=== PATIENT | male | born 1975 | race American Indian/Alaskan Native ===

== ENCOUNTER 2018-03-31 16:09 | Emergency (ER) | payer OTHER ==
[2018-03-31 16:19] VITALS: BP 159/105
[2018-03-31] MEDS ORDERED: DILAUDID IM ONE (16:29)
[2018-03-31] MEDS ORDERED: DILAUDID ONE (16:33)
[2018-03-31] MEDS ORDERED: TRIPLE ANTIBIOTIC TP ONE (16:33)
[2018-03-31] MEDS ORDERED: XYLOCAINE 1% 20 mL INFILTRATI ONE (16:33)
[2018-03-31] MEDS ORDERED: NACL 0.9% IR ONE (16:33)
[2018-03-31] MEDS ORDERED: BOOSTRIX IM ONE (16:33)
[2018-03-31] MEDS ORDERED: ANCEF IM ONE (16:34)
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
--- NOTE | 2018-03-31 16:56 | XRay Report ---
FINAL REPORT EXAM: XR HAND 3+V LT HISTORY: nail through left ring finger TECHNIQUE: AP, lateral, and oblique views of the left hand PRIORS: None. FINDINGS: There is a metallic nail traversing the 4th proximal phalanx in its distal shaft. This also traverses the soft tissues of the 4th finger. There is no evidence for acute fracture or dislocation. Bony mineralization is normal and joint space s are maintained. IMPRESSION: Metallic nail is present traversing through the 4th proximal phalanx and the surrounding soft tissues .
[2018-03-31] MEDS ORDERED: WATER FOR INJ (PF) ONE (17:04)
[2018-03-31] MEDS ORDERED: PERCOCET 5/325 PO ONE (17:56)
== END 2018-03-31 18:37 | disposition home or self-care (01) ==
LOC: ED 16:09
DX: S60.032A Contusion of left middle finger without damage to nail, initial encounter (principal); F17.200 Nicotine dependence, unspecified, uncomplicated; W45.0XXA Nail entering through skin, initial encounter; W29.4XXA Contact with nail gun, initial encounter; Y93.89 Activity, other specified; Y99.8 Other external cause status; Y92.69 Other specified industrial and construction area as the place of occurrence of the external cause
CPT/HCPCS: 64450; 73130; 90471; 90715; 96372; 99283; J0690; J1170; A6250

== ENCOUNTER 2018-04-02 15:06 | Emergency (ER) | payer OTHER ==
--- NOTE | 2018-04-02 16:04 | Emergency Department Report ---
ED Recheck HPI - General Chief Complaint: Extremity Injury, Upper Stated Complaint: LFT HAND PAIN/INJURY Time Seen by Provider: 04/02/18 16:03 Source: patient Mode of arrival: Ambulatory Limitations: No Limitations - History of Present Illness Initial Comments: Patient is a pleasant 42-year-old male who was seen yesterday. He had a nail approximately 1-1/2 inches long and embedded in the soft tissue of his finger. The foreign body was removed without difficulty. Patient was given Ancef in the emergency room and discharged home with his family. He was unable to afford antibiotics so he was sent home on amoxicillin with instructions to follow up in the ER for recheck. Patient had also been given a tetanus and wound care. Patient went to work today and they looked at his wound and noticed it was red. They sent him to [facility] who sent him here. However, this is after they medicated him with an unknown medication. They were able to get him Bactrim he has the actual bottle in hand at this point. Patient is moving all extremities, has normal sensation, distal medial radial nerves intact on admission MD Complaint: wound re-check Initial Visit For: other Returns Today for: wound recheck - Related Data Previous Rx's Medication Instructions Recorded Last Taken Type traMADol [Ultram] 50 mg PO Q6HR PRN #12 tablet 03/31/18 Unknown Rx Allergies Allergy/AdvReac Type Severity Reaction Status Date / Time No Known Allergies Allergy Unverified 03/31/18 16:19 ED Review of Systems ROS: Stated complaint: LFT HAND PAIN/INJURY Other details as noted in HPI Comment: All other systems reviewed and negative Constitutional: denies: chills Eyes: denies: eye pain Respiratory: denies: cough Cardiovascular: denies: dyspnea on exertion Gastrointestinal: denies: nausea Genitourinary: denies: urgency Musculoskeletal: as per HPI Skin: other (finger and proximal hand is noted to be swollen today. It is mildly erythematous. Not warm to touch. No drainage or abscess.). denies: rash Neurological: denies: headache Psychiatric: denies: anxiety Hematological/Lymphatic: denies: easy bleeding ED Past Medical Hx - Past Medical History Previous Medical History?: No - Surgical History Past Surgical History?: Yes Additional Surgical History: back surgery - Family History Family history: no significant - Social History Smoking Status: Current Every Day Smoker Substance Use Type: None - Medications Home Medications: Home Medications Medication Instructions Recorded Confirmed Last Taken Type traMADol [Ultram] 50 mg PO Q6HR PRN #12 tablet 03/31/18 Unknown Rx ED Physical Exam - General Limitations: No Limitations General appearance: alert - Head Head exam: Present: atraumatic - Eye Eye exam: Present: normal appearance, PERRL - ENT ENT exam: Present: normal exam - Neck Neck exam: Present: normal inspection - Respiratory Respiratory exam: Present: normal lung sounds bilaterally - Cardiovascular Cardiovascular Exam: Present: regular rate - GI/Abdominal GI/Abdominal exam: Present: soft - Rectal Rectal exam: Present: deferred - Extremities Exam Extremities exam: Present: normal inspection - Expanded Upper Extremity Exam Left Elbow exam: Present: normal inspection Forearm Wrist exam: Present: normal inspection Hand Wrist exam: Present: full ROM, swelling, erythema, other (puncture wound status post foreign body removal). Absent: tenderness, abrasion, laceration, ecchymosis, deformity, crepidus, dislocation, amputation, nail avulsion, subungual hematoma Hand L/R Back: 1 - Area of redness. Radial medial and ulnar nerves intact. Rapid capillary refill. +2 radial and ulnar pulses. Sensation intact ED Course Vital Signs 04/02/18 04/02/18 04/02/18 15:40 17:52 18:22 Temperature 98.0 F Pulse Rate 82 80 Respiratory 18 16 18 Rate Blood Pressure 144/97 Blood Pressure 136/80 [Right] O2 Sat by Pulse 98 99 Oximetry ED Recheck MDM - Core Measures Measure Exclusions: not indicated - Differential Diagnosis Wound Recheck - Medical Decision Making Survey was repeated and there is a small avulsion fracture that was not obvious on the x-ray yesterday. Patient's hand was splinted. Patient is coming back tomorrow for a recheck. He is to continue taking his Bactrim. Critical care attestation.: If time is entered above; I have spent that time in minutes in the direct care of this critically ill patient, excluding procedure time. ED Disposition Clinical Impression: Finger fracture, left, Foreign body (FB) in soft tissue, Contusion Disposition: DC- TO HOME OR SELFCARE Is pt being admited?: No Does the pt Need Aspirin: No Condition: Stable Additional Instructions: RETURN TO ER TOMORROW BETWEEN 8AM AND 11AM TO SEE [facility] FOR RE-EXAMINATION CONTINUE TO TAKE YOUR BACTRIM MEDICATION STOP YOUR AMOXICILLIN Referrals: DUKE NUR MD [Primary Care Provider] - 3-5 Days Time of Disposition: 16:53
--- NOTE | 2018-04-02 17:22 | XRay Report ---
FINAL REPORT EXAM: XR FINGER(S) 1V LT HISTORY: SP FOREIGN BODY REMOVAL TECHNIQUE: AP, lateral, and oblique views of the left hand and 4th finger PRIORS: X-rays left hand 03/31/2018 FINDINGS: The metallic foreign body representing a nail has been removed in the interim. There are small fractu re fragments involving the distal end of the 4th proximal phalanx remaining. The largest of these fra gments is located along the ulnar margin of this bone. Overlying swelling is seen in this region. IMPRESSION: Fracture of the distal 4th proximal phalanx following removal of the radiopaque foreign body from the same region.
[2018-04-02] MEDS ORDERED: PERCOCET 5/325 PO ONE (17:33)
[2018-04-02 17:51] LABS: Basophils % (Auto) 0.3 % (0.0-1.8); Eosinophils % (Auto) 0.4 % (0.0-4.3); Hematocrit 42.8 % (35.5-45.6); Hemoglobin 14.8 gm/dl (11.8-15.2); Lymphocytes % (Auto) 25.8 % (13.4-35.0); Mean Corpuscular HGB Conc 35 % (32-34); Mean Corpuscular Volume 90 fl (84-94); Monocytes # (Auto) 0.7 K/mm3 (0.0-0.8); Monocytes % (Auto) 5.8 % (0.0-7.3); Platelet Count 262 K/mm3 (140-440); Red Blood Count 4.74 M/mm3 (3.65-5.03); Red Cell Distribution Width 13.4 % (13.2-15.2)
[2018-04-02 18:09] LABS: Alanine Aminotransferase 21 units/L (7-56); Albumin 4.2 g/dL (3.9-5); BUN/Creatinine Ratio 15; Blood Urea Nitrogen 9 mg/dL (9-20); Calcium 9.2 mg/dL (8.4-10.2); Hemolysis Index 8
[2018-04-02 18:25] VITALS: BP 136/80
== END 2018-04-02 18:22 | disposition home or self-care (01) ==
LOC: ED 15:06
DX: S62.603D Fracture of unspecified phalanx of left middle finger, subsequent encounter for fracture with routine healing (principal); F17.200 Nicotine dependence, unspecified, uncomplicated; X58.XXXD Exposure to other specified factors, subsequent encounter
CPT/HCPCS: 36415; 80053; 85025

== ENCOUNTER 2018-04-03 10:27 | Emergency (ER) | payer OTHER ==
[2018-04-03 10:42] VITALS: BP 130/80
[2018-04-03] MEDS ORDERED: NORCO 5/325 PO ONE (10:48)
--- NOTE | 2018-04-03 10:49 | Emergency Department Report ---
ED Recheck HPI - General Chief Complaint: Extremity Injury, Upper Stated Complaint: LFT HAND PAIN Time Seen by Provider: 04/03/18 10:47 Source: patient Mode of arrival: Ambulatory Limitations: No Limitations - History of Present Illness Initial Comments: She was asked to return to the ER today for recheck of his hand. He had a foreign body removed 2 days ago. He was here yesterday with some redness and swelling of the hand. He returns today for further evaluation MD Complaint: wound re-check Symptoms Since Prior Visit: no new symptoms Context: planned re-check Associated Symptoms: none Treatments Prior to Arrival: other (Bactrim) - Related Data Previous Rx's Medication Instructions Recorded Last Taken Type traMADol [Ultram] 50 mg PO Q6HR PRN #12 tablet 03/31/18 Unknown Rx Allergies Allergy/AdvReac Type Severity Reaction Status Date / Time No Known Allergies Allergy Verified 04/03/18 10:41 ED Review of Systems ROS: Stated complaint: LFT HAND PAIN Other details as noted in HPI Comment: All other systems reviewed and negative Constitutional: denies: chills ENT: denies: ear pain Respiratory: denies: orthopnea Cardiovascular: denies: palpitations Endocrine: denies: intolerance to cold Gastrointestinal: denies: abdominal pain Genitourinary: denies: dysuria Musculoskeletal: as per HPI (mild hand pain patient states overall is feeling much better), other Skin: denies: lesions Psychiatric: denies: anxiety ED Past Medical Hx - Past Medical History Previous Medical History?: No - Surgical History Past Surgical History?: Yes Additional Surgical History: back surgery - Social History Smoking Status: Current Every Day Smoker Substance Use Type: Alcohol - Medications Home Medications: Home Medications Medication Instructions Recorded Confirmed Last Taken Type traMADol [Ultram] 50 mg PO Q6HR PRN #12 tablet 03/31/18 Unknown Rx ED Physical Exam - General Limitations: No Limitations General appearance: alert - Head Head exam: Present: normocephalic - Eye Eye exam: Present: normal appearance, PERRL, EOMI - ENT ENT exam: Present: normal exam - Neck Neck exam: Present: normal inspection - Respiratory Respiratory exam: Present: normal lung sounds bilaterally - Cardiovascular Cardiovascular Exam: Present: regular rate - GI/Abdominal GI/Abdominal exam: Present: soft - Expanded Upper Extremity Exam Left Hand Wrist exam: Present: full ROM, swelling (Gen-Probe over yesterday), other (known avulsion fracture). Absent: tenderness, abrasion, laceration, ecchymosis, deformity, crepidus, dislocation, erythema, amputation, nail avulsion, subungual hematoma Vascular: Present: normal capillary refill, radial pulse, brachial pulse, ulnar pulse - Back Exam Back exam: Present: normal inspection - Neurological Exam Neurological exam: Present: alert, oriented X3 - Psychiatric Psychiatric exam: Present: normal affect, normal mood ED Course Vital Signs 04/03/18 10:39 Temperature 98.2 F Pulse Rate 90 Respiratory 16 Rate Blood Pressure 130/80 O2 Sat by Pulse 96 Oximetry ED Recheck MDM - Core Measures Measure Exclusions: not indicated - Differential Diagnosis Wound Recheck - Medical Decision Making Patient's hand continues to improve. Splint has been reapplied. Patient will be asked to follow-up with orthopedic hand doctor. Critical care attestation.: If time is entered above; I have spent that time in minutes in the direct care of this critically ill patient, excluding procedure time. ED Disposition Clinical Impression: Foreign body (FB) in soft tissue, Finger fracture, left, Open fracture Disposition: - TO HOME OR SELFCARE Is pt being admited?: No Does the pt Need Aspirin: No Condition: Stable Additional Instructions: WEAR YOUR SPLINT UNTIL SEEN BY ORTH MD ELEVATE WHEN SITTING TO KEEP SWELLING DOWN MOTRIN OR TYLENOL FOR MILD PAIN ULTRAM FOR SEVERE PAIN DO NOT TAKE THE AMOXICILLIN WE DISCUSSED YESTERDAY CONTINUE YOUR BACTRIM UNTIL IT IS GONE FOLLOW UP WITH AN ORTHO MEDICAL DOCTOR A REFERRAL TO DR JENNINGS IS BELOW HOWEVER, YOU CAN SEE ANY HAND DOCTOR YOU NEED TO BE SURE THIS CONTINUE TO HEAL WHEN YOU GO TO HIM MAKE SURE YOU TAKE YOUR DISC OF IMAGES-- AND LET HIM KNOW YOU WERE SEEN HERE. Referrals: STU HASSAN DO [Primary Care Provider] - 3-5 Days KELSEY JENNINGS MD [Staff Physician] - 3-5 Days Time of Disposition: 11:58
[2018-04-03] MEDS ORDERED: ceFAZolin 2 GM in NACL 0.9% 100 ML IV ONE (11:00)
== END 2018-04-03 12:51 | disposition home or self-care (01) ==
LOC: ED 10:27
DX: S60.552A Superficial foreign body of left hand, initial encounter (principal); S62.605D Fracture of unspecified phalanx of left ring finger, subsequent encounter for fracture with routine healing; X58.XXXD Exposure to other specified factors, subsequent encounter
CPT/HCPCS: 29130; 96365; 99282; J0690